=== PATIENT | female | born 1995 | race African-American/Black ===

== ENCOUNTER 2016-05-30 10:23 | Inpatient (IN) | payer MEDICAID ==
--- NOTE | 2016-05-30 10:34 | Non Stress Test Report ---
Non Stress Test Datetime Report Generated by CPN: 05/30/2016 10:33 DEMOGRAPHIC EGA NST: 34.2 INDICATION Indication for Study: Ordered by Provider MONITORING Monitor Explained: Monitor Explained; Test Explained; Patient Verbalized Understanding Time on Monitor: 05/05/2016 12:22 Time off Monitor: 05/05/2016 16:13 NST Duration: 231 NST INTERVENTIONS NST Interventions: Reposition Patient Physician Notified NST: Dr. Neilsen BABY A: [id number] BABY A Movement : Present Contraction Frequency : rare FHR Baseline : 160 Accelerations : 15X15 Decelerations : None Variability : Moderate 6-25bpm NST Review: Meets Criteria for Reactive NST NST Review and Verified By : Michael Thompson RN NST Results: Reactive NST REPORT Report Trigger: Send Report
[2016-05-30] MEDS ORDERED: RINGERS SOLUTION,LACTATED 1,000 ML IV PRN (10:48)
[2016-05-30] MEDS ORDERED: RINGERS SOLUTION,LACTATED 1,000 ML IV ONE (10:48)
[2016-05-30] MEDS ORDERED: PENICILLIN G POTASSIUM 5,000,000 UNIT in DEXTROSE 5%-WATER 100 ML IV ONE (10:48)
[2016-05-30] MEDS ORDERED: PENICILLIN G-K 5 MILLION UNIT VIAL ONE (10:58)
[2016-05-30] MEDS ORDERED: LIDOCAINE 1% INJ-PF (10 MG/ML) 30 ML SDV ONE (11:08)
[2016-05-30] MEDS ORDERED: MISOPROSTOL 0.2 MG TABLET ONE (11:08)
[2016-05-30] MEDS ORDERED: OXYTOCIN/NORMAL SALINE 20 UNIT/1,000 ML RTUINJ ONE (11:08)
[2016-05-30 11:27] LABS: APPEARANCE,URINE SLIGHTLY-CLOUDY; BILIRUBIN,URINE NEGATIVE (NEGATIVE); GLUCOSE, URINE NEGATIVE (NEGATIVE); KETONES,URINE TRACE mg/dL (NEGATIVE); LEUKOCYTE ESTERASE,URINE SMALL (NEGATIVE); NITRITE,URINE NEGATIVE (NEGATIVE); PROTEIN,URINE 30 mg/dL (NEGATIVE); UROBILINOGEN,URINE NEGATIVE mg/dL (<2.0)
[2016-05-30] MEDS ORDERED: IBUPROFEN 800 MG TABLET ONE ×2 (11:30→14:05)
[2016-05-30 11:35] LABS: HEMATOCRIT 32.9 % (36.0-47.0); HEMOGLOBIN 10.6 g/dL (12.0-15.5); HGB HCT DIFFERENCE -1.1; MEAN CORPUSCULAR HEMOGLOBIN 28.7 pg (27.0-33.4); MEAN CORPUSCULAR HGB CONC 32.2 g/dL (32.0-36.0); MEAN CORPUSCULAR VOLUME 89 fl (80-97); WHITE BLOOD COUNT 21.1 10^3/uL (4.0-10.5)
[2016-05-30 11:52] LABS: BAND NEUTROPHILS % (MANUAL) 2 % (3-5); BASOPHILS % (MANUAL) 0 % (0-2); EOSINOPHILS % (MANUAL) 0 % (0-6); LYMPHOCYTES % (MANUAL) 4 % (13-45); TOTAL CELLS COUNTED 100
[2016-05-30 11:53] LABS: RBC MORPHOLOGY COMMENT NORMO-CYTIC/CHROMIC
--- NOTE | 2016-05-30 12:00 | L&D Flow Sheet ---
LD Flowsheet Datetime Report Generated by CPN: 05/30/2016 12:00 Datetime: 05/30/2016 11:40 NBP Sys/Jenifer/Mean (mmHg): 166 (QS system process) : 85 (QS system process) : 117 (QS system process) Pulse: 90 (QS system process) LaborFlag: Labor (QS system process) Datetime: 05/30/2016 11:24 NBP Sys/Jenifer/Mean (mmHg): 196 (QS system process) : 153 (QS system process) : 168 (QS system process) Pulse: 127 (QS system process) LaborFlag: Labor (QS system process) Datetime: 05/30/2016 11:16 Communication Comments: Nursery at bedside for delivery. (Mart Martina, RN) Datetime: 05/30/2016 11:05 Vital Signs Stage of : Labor (Deidre Marlatt, RN) Vaginal Exam Dilatation (cm): 10.0 (Deidre Thompson RN) Effacement (%): 100 (Deidre Thompson RN) Station: 2 (Deidre Thompson RN) Exam by: Adan LAMBERT CNM (Deidre Thompson RN) Membrane Status: Ruptured (Deidre Thompson RN) Medications Antibiotics: Penicillin IV (Units) @ 5 million units (Deidre Thompson RN) Patient Care IV/Blood Work: IV Started; IV Bolus Started (Deidre Thompson RN) Procedures: Sterile Vag Exam (Deidre Marlatt, RN) Communication Communication: RN at Bedside; Provider at Bedside (Deidre Yanejr, RN) Datetime: 05/30/2016 11:03 Patient Care IV/Blood Work: Labs Drawn (Deidremika Thompson, RN) Datetime: 05/30/2016 11:02 Stage 2 Pushing: Urge to Push (Deidre Marlatt, RN) Provider Notified (Name): A. Emmel CNM (Deidre Marlatt, RN) Communication Comments: Notified provider of patient grunting with contractions (Deidre Marlatt, RN) Datetime: 05/30/2016 10:47 Communication Comments: order received for fern testing, during exam, RN noted pooling, patient is grossly ruptured (Olive Adithya, RN) Datetime: 05/30/2016 10:37 NBP Sys/Jenifer/Mean (mmHg): 150 (QS system process) : 98 (QS system process) : 112 (QS system process) Pulse: 123 (QS system process) LaborFlag: OB Triage (QS system process)
[2016-05-30 12:20] LABS: URINE BARBITURATES SCREEN NEGATIVE; URINE METHADONE SCREEN NEGATIVE; URINE PHENCYCLIDINE SCREEN NEGATIVE
[2016-05-30 12:44] LABS: ALANINE AMINOTRANSFERASE 26 U/L (9-52); ALBUMIN 3.8 g/dL (3.5-5.0); ALKALINE PHOSPHATASE 269 U/L (38-126); ANION GAP 14 (5-19); ASPARTATE AMINO TRANSFERASE 32 U/L (14-36); BILIRUBIN,TOTAL 0.5 mg/dL (0.2-1.3); BLOOD UREA NITROGEN 5 mg/dL (7-20); CARBON DIOXIDE 20 mmol/L (22-30); CHLORIDE 105 mmol/L (98-107); CREATININE RESULT 0.48 mg/dL (0.52-1.25); GLUCOSE 92 mg/dL (75-110); LDH 508 U/L (313-618); SODIUM 139.3 mmol/L (137-145); TOTAL PROTEIN 6.7 g/dL (6.3-8.2); URIC ACID 5.6 mg/dL (2.5-6.2)
[2016-05-30 12:46] LABS: POTASSIUM 3.7 mmol/L (3.6-5.0)
--- NOTE | 2016-05-30 13:26 | Delivery Summary ---
Del Sum A-C Datetime Report Generated by CPN: 05/30/2016 13:26 ADMISSION DATA Chief Complaint: Uterine Contractions; Suspected Ruptured Membranes Admission Impression: Term, Intrauterine Admit Provider Comments: 28 yo presents with suspected rupture of membranes poor care pt appears to be high on drugs denies drug use after questioning reports +THC last night abdomen nontender FHTs average variability 120s no decelerations GBS positive pt with urge to push bed prepared for delivery DELIVERY PERSONNEL Delivery Doctor:: Sonia Roman, CNM Labor and Delivery Nurse:: Deidre Thompson RNforging dies final finisher Nurse:: Clara Best RN Nursery Nurse:: Ruthie Elizabeth RN Messaging Architect/CUSTOMS INSPECTOR: [facility] Additional Personnel: : Lani Young RN MATERNAL INFORMATION Delivery Anesthesia: None Medications After Delivery: Pitocin Bolus-Please Comment; Pitocin Drip 20 Units/1000ml NSS Estimated Blood Loss (ml): 350 Maternal Complications: Precipitous Labor (<3hrs); Other Other Maternal Complications: THC USE Provider Comments: pt screaming in bed nursery nurse at bedside bed prepared pt's mother at bedside bulb suctioned on perineum TRINA to abdomen tactile stimulation elicits spont cry cord clamped and cut by FOB GBS positive- prophylaxis x 1 completed at time of pushing cord blood obtained thin cord placenta to pathology EBL 350 cc superficial labial lacerations not repaired uterus explored hemostasis achieved LABOR SUMMARY EDC: 06/14/2016 00:00 No. Babies in Womb: 1 Attempted: No Labor Anesthesia: None LABOR INFORMATION Reason for Induction: Not Applicable Onset of Labor: 05/30/2016 03:00 Complete Dilatation: 05/30/2016 11:05 Oxytocin: N/A Group B Beta Strep: 1 GROUP B BETA HEMOLYTIC STREPTOCOCCUS RECOVERED Antibiotics # of Doses: I Antibiotics Time of Last Dose: 1101 Name of Antibiotic Given: PENICILLIN G Steroids Given: None Reason Steroids Not Administered: Not Applicable MEMBRANES Membranes Rupture Method: Spontaneous Rupture of Membranes: 05/30/2016 05:30 Length of Rupture (hr): 5.78 Amniotic Fluid Color: Clear Amniotic Fluid Amount: Moderate Amniotic Fluid Odor: Normal STAGES OF LABOR Stage 1 hr: 8 Stage 1 min: 5 Stage 2 hr: 0 Stage 2 min: 12 Stage 3 hr: 0 Stage 3 min: 5 Total Time in Labor hr: 8 Total Time in Labor min: 22 VAGINAL DELIVERY Episiotomy: None Laceration Type: None Sponge Count Correct: N/A Sharps Count Correct: N/A BABY A INFORMATION Delivery Date/Time: 05/30/2016 11:17 Method of Delivery: Vaginal Born in Route : No : N/A Forceps: N/A Vacuum Extraction: N/A Shoulder Dystocia : No PRESENTATION/POSITION BABY A Presentation: Cephalic Cephalic Presentation: Vertex Vertex Position: Right Occipital Anterior Breech Presentation: N/A PLACENTA INFORMATION BABY A Placenta Delivery Time : 05/30/2016 11:22 Placenta Method of Delivery: Spontaneous Placenta Status: Delivered SCORES BABY A Heart Rate 1 min: >100 bpm Resp Effort 1 min: Good Cry Reflex Irritability 1 min: Cough or Sneeze or Pulls Away Muscle Tone 1 min: Active Motion Color 1 min: Blue/Pale Resuscitation Effort 1 min: Tactile Stimulation SCORE 1 MIN: 8 Heart Rate 5 min: >100 bpm Resp Effort 5 min: Good Cry Reflex Irritability 5 min: Cough or Sneeze or Pulls Away Muscle Tone 5 min: Active Motion Color 5 min: Body [place], Extremities Blue Resuscitation Effort 5 min: Tactile Stimulation SCORE 5 MIN: 9 INFANT INFORMATION BABY A Gestational Age at Delivery: 37.6 Gestational Status: Early Term- 37- 38.6 Weeks Outcome : Liveborn Infant Condition : Stable Sex: Female IDENTIFICATION BABY A Verification Date/Time: 05/30/2016 11:31 ID Band Number: [id number] Mother's Name Verified: Yes RN Verifying Infant: Enedelia HajiEUSEBIO, Michael Thompson RN WEIGHT/LENGTH BABY A Infant Birthweight (gm): 2480 Weight (lb): 5 Infant Weight (oz): 7 Infant Length (in): 18.50 Length (cm): 46.99 CORD INFORMATION BABY A No. Cord Vessels: 3 Nuchal Cord : N/A Nuchal Cord- Other: FOOT CORD Cord Blood Taken: Yes-For Eval (Mom's Blood Type - or O+) Suction: None ASSESSMENT BABY A Infant Complications: None Physical Findings at Delivery: Caput Succedaneum; [place] Spots Respirations: Appears Normal Skin to Skin: Yes Skin to Skin Time (min): 5 Steward/Stewardess Third Class/ALS Called : No Care By: R MAXIMINO, RN BABY B INFORMATION : N/A SIGNATURES Assignment: Herve Adair DO Signature: with User ID: [email or web address] : with User ID: [email or web address]
--- NOTE | 2016-05-30 13:39 | Admission Physical ---
Datetime Report Generated by CPN: 05/30/2016 13:38 CURRENT ADMISSION Chief Complaint: Uterine Contractions; Suspected Ruptured Membranes Admit Plan: Admit to Unit Admit Plan- Other: precipituous delivery ALLERGIES Medication Allergies: No Medication Allergies: No Known Allergies (05/30/2016) Latex: No Latex Allergies Food Allergies: denies Environmental Allergies: denies OBSTETRICAL HISTORY EDC: 06/14/2016 00:00 : 1 Para: 0 Gestational Diabetes: No Rh Sensitization: No Incompetent Cervix: No RANJIT: No Infertility: No ART Treatment: No Uterine Anomaly: No IUGR: No Hx Previous C/S: No Macrosomia: No Hx Loss/Stillborn: No PIH: No Hx : No Placenta Previa/Abruption: No Depression/PP Depression: No PTL/PROM: No Post Hemorrhage: No Current Procedures: Ultrasound Obstetrical History Comments: G1: current SEE RECORDS Alcohol: No Marijuana : Yes Last Used: 05/29/2016 00:00 Cocaine: No Other Illicit Drugs: No Cigarettes: Never Smoker. [id number] MEDICAL HISTORY Diabetes: No Blood Transfusion: No Pulmonary Disease (Asthma, TB): No Breast Disease: No Hypertension: No Meat Puller Surgery: No Heart Disease: No Hosp/Surgery: No Autoimmune Disorder: No Anesthetic Complications: No Kidney Disease: No Abnormal Pap Smear: No Neuro/Epilepsy: No Psychiatric Disorders: No Other Medical Diseases: No Hepatitis/Liver Disease: No Significant Family History: No Varicosities/Phlebitis: No Trauma/Violence : No Thyroid Dysfunction: No INFECTIOUS HISTORY Gonorrhea: No Genital Herpes: No Chlamydia: No Tuberculosis: No Syphilis: No Hepatitis: No HIV/AIDS Exposure: No Rash or Viral Illness: No HPV: No PHYSICAL EXAM General: Normal HEENT: Normal Neurologic: Normal Thyroid: Normal Heart: Normal Lungs: Normal Breast: Normal Back: Normal Abdomen: Normal Genitourinary Exam: Normal Extremities: Normal DTRs: Normal Pelvic Type: Adequate Vital Signs: Reviewed VAGINAL EXAM Dilatation: 10 Effacement: 100 Station: 2 MEMBRANES Membranes: Ruptured Amniotic Fluid Color: Clear FETUS A EGA: 37.6 Monitoring: External US Decelerations: None FHR Category: Category I Presentation: Vertex Admit Comment: 28 yo presents with suspected rupture of membranes poor care pt appears to be high on drugs denies drug use after questioning reports +THC last night abdomen nontender FHTs average variability 120s no decelerations GBS positive pt with urge to push bed prepared for delivery PLANS FOR LABOR AND DELIVERY Labor and Delivery: None Pain Management: None Feeding Preference: Formula Benefit of Breast Feed Discussed: Yes Circumcision: N/A INFORMED CONSENT Informed Consent Obtained: Vaginal Delivery; Risks, Benefits and Alternatives Discussed Assignment: DO Livan Irene: with User ID: [email or web address] : with User ID: [email or web address]
[2016-05-30] MEDS ORDERED: DIBUCAINE 1% OINTMENT 28 GM TP PRN (13:47)
[2016-05-30] MEDS ORDERED: BENZOCAINE/MENTHOL AEROSOL SPRAY 56 ML TOP PRN (13:47)
[2016-05-30] MEDS ORDERED: DIPH/PERTUSS(ACELL)/TETANUS VAC/PF 0.5 ML SYR (>=10YO) IM PRN (13:47)
[2016-05-30] MEDS ORDERED: ZOLPIDEM TARTRATE 5 MG TABLET PO PRN (13:47)
[2016-05-30] MEDS ORDERED: MEASLES,MUMPS&RUBELLA VACC/PF 0.5 ML VIAL SUBCUT PRN (13:47)
--- NOTE | 2016-05-30 16:01 | L&D Flow Sheet ---
LD Flowsheet Datetime Report Generated by CPN: 05/30/2016 16:00 Datetime: 05/30/2016 13:30 Pain Scale: 1 (Deidre Thompson RN) Pain Presence: Constant (Deidre Thompson RN) Pain Type: Ache (Deidre Thompson RN) Pain Location: Perineum (Deidre Thompson RN) Pain Goal: 1 (Deidre Thompson RN) Pain Relief Measures: Comfort Measures (Deidre Thompson RN) LaborFlag: Labor (QS system process) Datetime: 05/30/2016 13:22 NBP Sys/Jenifer/Mean (mmHg): 139 (QS system process) : 68 (QS system process) : 96 (QS system process) Pulse: 95 (QS system process) LaborFlag: Labor (QS system process) Datetime: 05/30/2016 13:11 NBP Sys/Jenifer/Mean (mmHg): 148 (QS system process) : 80 (QS system process) : 108 (QS system process) Pulse: 91 (QS system process) LaborFlag: Labor (QS system process) Datetime: 05/30/2016 13:01 NBP Sys/Jenifer/Mean (mmHg): 152 (QS system process) : 91 (QS system process) : 110 (QS system process) Pulse: 82 (QS system process) LaborFlag: Labor (QS system process) Datetime: 05/30/2016 13:00 Pain Scale: 1 (Deidre Thompson RN) Pain Presence: Intermittent (Deidre Thompson RN) Pain Type: Cramping; Ache (Deidre Thompson RN) Pain Location: Abdomen; Perineum (Deidre Thompson RN) LaborFlag: Labor (QS system process) Datetime: 05/30/2016 12:52 NBP Sys/Jenifer/Mean (mmHg): 161 (QS system process) : 77 (QS system process) : 110 (QS system process) Pulse: 81 (QS system process) LaborFlag: Labor (QS system process) Datetime: 05/30/2016 12:42 NBP Sys/Jenifer/Mean (mmHg): 158 (QS system process) : 77 (QS system process) : 110 (QS system process) Pulse: 76 (QS system process) LaborFlag: Labor (QS system process) Datetime: 05/30/2016 12:32 NBP Sys/Jenifer/Mean (mmHg): 186 (QS system process) : 88 (QS system process) : 126 (QS system process) Pulse: 85 (QS system process) LaborFlag: Labor (QS system process) Datetime: 05/30/2016 12:30 Pain Scale: 1 (Deidre Thompson RN) Pain Presence: Intermittent (Deidre Thompson RN) Pain Type: Cramping; Ache (Deidre Thompson RN) Pain Location: Abdomen; Perineum (Deidre Thompson RN) LaborFlag: Labor (QS system process) Datetime: 05/30/2016 12:21 NBP Sys/Jenifer/Mean (mmHg): 162 (QS system process) : 82 (QS system process) : 117 (QS system process) Pulse: 90 (QS system process) LaborFlag: Labor (QS system process) Datetime: 05/30/2016 12:18 Communication: Provider Orders Received; Call/Page Placed to Provider (Deidre Thompson RN) Provider Notified (Name): AdanGordy Abel CNM (Deidre Thompson RN) Notification Reason: Status Update; Maternal Vital Sign Change (Deidre Thompson RN) Communication Comments: notified provider of patient's BPs, received order to obtain CMP, LDH, and uric acid labs (Deidre Thompson RN) Datetime: 05/30/2016 12:15 NBP Sys/Jenifer/Mean (mmHg): 173 (QS system process) : 93 (QS system process) : 125 (QS system process) Pulse: 84 (QS system process) Pain Scale: 2 (Deidre Thompson RN) Pain Presence: Intermittent (Deidre Thompson RN) Pain Type: Cramping; Ache (Deidre Thompson RN) Pain Location: Abdomen; Perineum (Deidre Thompson RN) LaborFlag: Labor (QS system process) Datetime: 05/30/2016 12:09 NBP Sys/Jenifer/Mean (mmHg): 190 (QS system process) : 107 (QS system process) : 139 (QS system process) Pulse: 84 (QS system process) LaborFlag: Labor (QS system process) Datetime: 05/30/2016 12:08 NBP Sys/Jenifer/Mean (mmHg): 138 (QS system process) : 90 (QS system process) : 109 (QS system process) Pulse: 87 (QS system process) LaborFlag: Labor (QS system process) Datetime: 05/30/2016 12:00 Pain Scale: 2 (Deidre Thompson RN) Pain Presence: Intermittent (Deidre Thompson RN) Pain Type: Cramping; Ache (Deidre Thompson RN) Pain Location: Abdomen; Perineum (Deidre Thompson RN) LaborFlag: Labor (QS system process)
--- NOTE | 2016-05-30 16:27 | Admission Physical ---
Datetime Report Generated by CPN: 05/30/2016 16:27 CURRENT ADMISSION Chief Complaint: Uterine Contractions; Suspected Ruptured Membranes Admit Plan: Admit to Unit Admit Plan- Other: precipituous delivery ALLERGIES Medication Allergies: No Medication Allergies: No Known Allergies (05/30/2016) Latex: No Latex Allergies Food Allergies: denies Environmental Allergies: denies OBSTETRICAL HISTORY EDC: 06/14/2016 00:00 : 1 Para: 0 Gestational Diabetes: No Rh Sensitization: No Incompetent Cervix: No RANJIT: No Infertility: No ART Treatment: No Uterine Anomaly: No IUGR: No Hx Previous C/S: No Macrosomia: No Hx Loss/Stillborn: No PIH: No Hx : No Placenta Previa/Abruption: No Depression/PP Depression: No PTL/PROM: No Post Hemorrhage: No Current Procedures: Ultrasound Obstetrical History Comments: G1: current SEE RECORDS Alcohol: No Marijuana : Yes Last Used: 05/29/2016 00:00 Cocaine: No Other Illicit Drugs: No Cigarettes: Never Smoker. [id number] MEDICAL HISTORY Diabetes: No Blood Transfusion: No Pulmonary Disease (Asthma, TB): No Breast Disease: No Hypertension: No Cocktail Lounge Manager Surgery: No Heart Disease: No Hosp/Surgery: No Autoimmune Disorder: No Anesthetic Complications: No Kidney Disease: No Abnormal Pap Smear: No Neuro/Epilepsy: No Psychiatric Disorders: No Other Medical Diseases: No Hepatitis/Liver Disease: No Significant Family History: No Varicosities/Phlebitis: No Trauma/Violence : No Thyroid Dysfunction: No INFECTIOUS HISTORY Gonorrhea: No Genital Herpes: No Chlamydia: No Tuberculosis: No Syphilis: No Hepatitis: No HIV/AIDS Exposure: No Rash or Viral Illness: No HPV: No PHYSICAL EXAM General: Normal HEENT: Normal Neurologic: Normal Thyroid: Normal Heart: Normal Lungs: Normal Breast: Normal Back: Normal Abdomen: Normal Genitourinary Exam: Normal Extremities: Normal DTRs: Normal Pelvic Type: Adequate Vital Signs: Reviewed VAGINAL EXAM Dilatation: 10 Effacement: 100 Station: 2 MEMBRANES Membranes: Ruptured Amniotic Fluid Color: Clear FETUS A EGA: 37.6 Monitoring: External US Decelerations: None FHR Category: Category I Presentation: Vertex Admit Comment: addendum pt with reactive rpr titer 1:8 in october poor care repeat rpr and TPA reviewed with pt. PLANS FOR LABOR AND DELIVERY Labor and Delivery: None Pain Management: None Feeding Preference: Formula Benefit of Breast Feed Discussed: Yes Circumcision: N/A INFORMED CONSENT Informed Consent Obtained: Vaginal Delivery; Risks, Benefits and Alternatives Discussed Assignment: DO Livan Irene: with User ID: [email or web address] : with User ID: [email or web address]
[2016-05-30] MEDS: PENICILLIN G POTASSIUM 2,500,000 UNIT in DEXTROSE 5%-WATER 50 ML IV SCH ×2 (16:48→19:34)
[2016-05-30] MEDS: DOCUSATE SODIUM 100 MG CAPSULE PO SCH (17:29)
[2016-05-30] MEDS: FERROUS SULFATE 325 MG TABLET PO SCH (17:29)
--- NOTE | 2016-05-30 19:02 | L&D Flow Sheet ---
LD Flowsheet Datetime Report Generated by CPN: 05/30/2016 19:00 Datetime: 05/30/2016 13:30 Pain Pain Scale: 1 (Deidre Thompson RN) Pain Presence: Constant (Deidre Thompson RN) Pain Type: Ache (KIMBERLY Louis Pain Location: Perineum (Deidre Thompson RN) Pain Goal: 1 (KIMBERLY Louis Pain Relief Measures: Comfort Measures (Deidre Marlatt, RN) LaborFlag: Labor (QS system process) Datetime: 05/30/2016 13:22 NBP Sys/Jenifer/Mean (mmHg): 139 (QS system process) : 68 (QS system process) : 96 (QS system process) Pulse: 95 (QS system process) LaborFlag: Labor (QS system process) Datetime: 05/30/2016 13:11 NBP Sys/Jenifer/Mean (mmHg): 148 (QS system process) : 80 (QS system process) : 108 (QS system process) Pulse: 91 (QS system process) LaborFlag: Labor (QS system process) Datetime: 05/30/2016 13:01 NBP Sys/Jenifer/Mean (mmHg): 152 (QS system process) : 91 (QS system process) : 110 (QS system process) Pulse: 82 (QS system process) LaborFlag: Labor (QS system process) Datetime: 05/30/2016 13:00 Pain Pain Scale: 1 (Deidre Thompson RN) Pain Presence: Intermittent (Deidre Thompson RN) Pain Type: Cramping; Ache (Deidre Thompson RN) Pain Location: Abdomen; Perineum (Deidre Thompson RN) LaborFlag: Labor (QS system process) Datetime: 05/30/2016 12:52 NBP Sys/Jenifer/Mean (mmHg): 161 (QS system process) : 77 (QS system process) : 110 (QS system process) Pulse: 81 (QS system process) LaborFlag: Labor (QS system process) Datetime: 05/30/2016 12:42 NBP Sys/Jenifer/Mean (mmHg): 158 (QS system process) : 77 (QS system process) : 110 (QS system process) Pulse: 76 (QS system process) LaborFlag: Labor (QS system process) Datetime: 05/30/2016 12:32 NBP Sys/Jenifer/Mean (mmHg): 186 (QS system process) : 88 (QS system process) : 126 (QS system process) Pulse: 85 (QS system process) LaborFlag: Labor (QS system process) Datetime: 05/30/2016 12:30 Pain Pain Scale: 1 (Deidre Thompson, EUSEBIO) Pain Presence: Intermittent (Deidre Thompson, EUSEBIO) Pain Type: Cramping; Ache (Deidre Thompson, EUSEBIO) Pain Location: Abdomen; Perineum (Deidre Thompson, EUSEBIO) LaborFlag: Labor (QS system process) Datetime: 05/30/2016 12:21 NBP Sys/Jenifer/Mean (mmHg): 162 (QS system process) : 82 (QS system process) : 117 (QS system process) Pulse: 90 (QS system process) LaborFlag: Labor (QS system process) Datetime: 05/30/2016 12:18 Communication Communication: Provider Orders Received; Call/Page Placed to Provider (Deidre Thompson RN) Provider Notified (Name): Elana Roman CNM (Deidre Thompson RN) Notification Reason: Status Update; Maternal Vital Sign Change (Deidre Thompson RN) Communication Comments: notified provider of patient's BPs, received order to obtain CMP, LDH, and uric acid labs (Deidre Thompson RN) Datetime: 05/30/2016 12:15 NBP Sys/Jenifer/Mean (mmHg): 173 (QS system process) : 93 (QS system process) : 125 (QS system process) Pulse: 84 (QS system process) Pain Pain Scale: 2 (Deidre Thompson RN) Pain Presence: Intermittent (Deidre Thompson RN) Pain Type: Cramping; Ache (Deidre Thompson RN) Pain Location: Abdomen; Perineum (Deidre Thompson RN) LaborFlag: Labor (QS system process) Datetime: 05/30/2016 12:09 NBP Sys/Jenifer/Mean (mmHg): 190 (QS system process) : 107 (QS system process) : 139 (QS system process) Pulse: 84 (QS system process) LaborFlag: Labor (QS system process) Datetime: 05/30/2016 12:08 NBP Sys/Jenifer/Mean (mmHg): 138 (QS system process) : 90 (QS system process) : 109 (QS system process) Pulse: 87 (QS system process) LaborFlag: Labor (QS system process) Datetime: 05/30/2016 12:00 Pain Pain Scale: 2 (Deidre Thompson RN) Pain Presence: Intermittent (Deidre Thompson RN) Pain Type: Cramping; Ache (Deidre Thompson RN) Pain Location: Abdomen; Perineum (Deidre Marlatt, RN) LaborFlag: Labor (QS system process) Datetime: 05/30/2016 11:45 Pain Pain Scale: 2 (Deidre Thompson, EUSEBIO) Pain Presence: Intermittent (Deidre Thompson, EUSEBIO) Pain Type: Cramping; Ache (Deidre Thompson, RN) Pain Location: Abdomen; Perineum (Deidre Thompson, EUSEBIO) LaborFlag: Labor (QS system process) Datetime: 05/30/2016 11:40 NBP Sys/Jenifer/Mean (mmHg): 166 (QS system process) : 85 (QS system process) : 117 (QS system process) Pulse: 90 (QS system process) LaborFlag: Labor (QS system process) Datetime: 05/30/2016 11:30 Pain Pain Scale: 2 (Deidre Thompson RN) Pain Presence: Intermittent (Deidre Thompson RN) Pain Type: Cramping; Ache (Deidre Thompson RN) Pain Location: Abdomen; Perineum (Deidre Thompson RN) LaborFlag: Labor (QS system process) Datetime: 05/30/2016 11:24 NBP Sys/Jenifer/Mean (mmHg): 196 (QS system process) : 153 (QS system process) : 168 (QS system process) Pulse: 127 (QS system process) Vital Sign Comments: patient very shakey, unable to keep arm still (Deidre Thompson, RN) LaborFlag: Labor (QS system process) Datetime: 05/30/2016 11:16 Communication Comments: Nursery at bedside for delivery. (Mart Brunofleet, RN) Datetime: 05/30/2016 11:10 Comments: RN at bedside continually monitoring FHTs while patient pushing with contractions (Deidre Cheoracioariel, RN) Stage 2 Pushing: Coached on Pushing (Deidre Chejr, RN) Pushing Position: Pushing with Contractions; Pushing Lithotomy (Deidre Marlatt, RN) Communication Communication: RN at Bedside; Provider at Bedside (Deidre Yanejr, RN) Datetime: 05/30/2016 11:05 Vital Signs Stage of : Labor (Deidre Marlatt, RN) Vaginal Exam Dilatation (cm): 10.0 (Deidre Marlatt, RN) Effacement (%): 100 (Deidre Marlatt, RN) Station: 2 (Deidre Marlatt, RN) Exam by: A EMMEL, CNM (Deidre Marlatt, RN) Membrane Status: Ruptured (Deidre Marlatt, RN) Medications Antibiotics: Penicillin IV (Units) @ 5 million units (Deidre Marlatt, RN) Patient Care IV/Blood Work: IV Started; IV Bolus Started (Deidremika Stanfordtt, RN) Procedures: Sterile Vag Exam (Deidre Yaneoraciott, RN) Communication Communication: RN at Bedside; Provider at Bedside (Deidre Marlatt, RN) Datetime: 05/30/2016 11:03 Patient Care IV/Blood Work: Labs Drawn (Deidre Marlatt, RN) Datetime: 05/30/2016 11:02 Stage 2 Pushing: Urge to Push (Deidre Thompson, RN) Provider Notified (Name): A. Emmel CNM (Deidre Thompson, RN) Communication Comments: Notified provider of patient grunting with contractions (Deidre Thompson, RN) Datetime: 05/30/2016 11:00 Uterine Activity Frequency (min): 3-4 (Deidre Marlatt, RN) Uterine Activity Frequency (min): unknown (Deidre Marlatt, RN) Quality: Moderate (Deidre Marlatt, RN) Duration (sec): 70-120 (Deidre Marlatt, RN) Resting Tone (Palpate): Relaxed (Deidre Marlatt, RN) Assessment A Monitor Mode: External US (Deidre Marlatt, RN) FHR Baseline Rate : 135 (Deidre Marlatt, RN) Variability: Moderate 6-25 bpm (Deidre Stanfordtt, RN) Pain Pain Scale: 5 (Deidre Thompson, RN) Pain Presence: Intermittent (Deidre Thompson, RN) Pain Type: Contraction (Deidre Stanfordtt, RN) Pain Location: Abdomen (Deidre Thompson, RN) Pain Goal: 1 (Deidre Thompson, RN) Pain Coping: Breathing Through Contractions (Deidre Thompson, RN) Vaginal Bleeding: Normal Show (Deidre Thompson, RN) Maternal Assessment Level of Consciousness: Fully Conscious (Deidre Thompson, RN) DTR's/Clonus: DTRs 2+; No Clonus (Deidre Thompson, RN) Headache: Denies (Deidre Thompson, RN) Breath Sounds, Left: Clear and Equal (Deidre Thompson, RN) Breath Sounds, Right: Clear and Equal (Deidre Thompson, RN) Nausea/Vomiting: Denies (Deidre Thompson RN) RUQ Epigastric Pain: Denies (Deidre Thompson RN) Teaching Instructional Method: Demo; Verbal; Patient Instructed; Family/Support Person Instructed; Verbalized Understanding (Deidre Thompson RN) Plan of Care: Plan of Care Discussed; Vaginal Delivery; Labor (Deidre Thompson RN) Unit Routine: [place] to Room; Call Roy; Monitoring (Deidre Thompson RN) Medications: Antibiotics (Deidre Thompson RN) LaborFlag: OB Triage (QS system process) Datetime: 05/30/2016 10:47 Communication Comments: order received for fern testing, during exam, RN noted pooling, patient is grossly ruptured (Olive Haji, EUSEBIO) Datetime: 05/30/2016 10:37 NBP Sys/Jenifer/Mean (mmHg): 150 (QS system process) : 98 (QS system process) : 112 (QS system process) Pulse: 123 (QS system process) LaborFlag: OB Triage (QS system process)
[2016-05-30] MEDS: IBUPROFEN 800 MG TABLET PO SCH (22:46)
[2016-05-31] MEDS: IBUPROFEN 800 MG TABLET PO SCH ×3 (06:02→21:44)
--- NOTE | 2016-05-31 06:27 | L&D General Admission ---
General Admit Datetime Report Generated by CPN: 05/31/2016 06:00 INFORMATION Patient Age: 20 (05/05/2016 12:09:QS system process) EDC: 06/14/2016 00:00 (05/05/2016 12:33:Olive Haji RN) : 1 (05/05/2016 12:33:Deidre Thompson RN) Para: 0 (05/05/2016 16:15:Olive Haji RN) Baby, Number in Womb: 1 (05/05/2016 16:15:Olive Haji RN) CARE Primary Dry Paste Supervisor: [facility] (05/05/2016 12:33:Olive Haji RN) Month of 1st Visit: September (05/05/2016 12:33:Olive Haji RN) Height (in): 64 (05/30/2016 15:27:QS system process) ALLERGIES Medication Allergy: No (05/05/2016 12:33:Olive Haji RN) Medication Allergies: No Known Allergies (05/30/2016) (05/30/2016 12:12:QS system process) Latex Allergy: No Latex Allergies (05/05/2016 12:33:Olive Haji RN) Food Allergies: denies (05/05/2016 12:33:Olive Haji RN) Environmental Allergies: denies (05/05/2016 12:33:Olive Haji RN) COMMUNICATION Primary Language: Maltese (05/05/2016 12:33:Olive Haji RN) Medical Tx Preferred Language: Maltese (05/05/2016 12:33:Olive Haji RN) DEMOGRAPHICS Address: [address] [place] [address] [address], [address] [place] [address] (05/05/2016 12:09:QS system process) Zipcode: [phone] (05/05/2016 12:09:QS system process) Home (05/05/2016 12:09:QS system process) SSN: [id number] (05/05/2016 12:09:QS system process) Next of Kin Name: MARY SCHWARTZ (05/05/2016 12:09:QS system process) Next of Kin (05/05/2016 12:09:QS system process) Next of Kin Relationship: MO (05/05/2016 12:09:QS system process) Date of : 1995 (05/05/2016 12:09:QS system process) Marital Status: Single (05/05/2016 12:09:QS system process) Sex: Female (05/05/2016 12:09:QS system process) Race: (05/05/2016 12:09:QS system process) Ethnicity: Non- or (05/05/2016 12:09:QS system process) Anabaptist: None (05/05/2016 12:09:QS system process) DRUG AND ALCOHOL USE Alcohol: No (05/05/2016 12:33:Olive Haji RN) Cigarettes: Never Smoker. [id number] (05/05/2016 12:33:Olive Haji RN) Marijuana: Yes (05/05/2016 12:33:Deidre Thompson RN) Marijuana Date Last Used: 05/29/2016 00:00 (05/05/2016 12:33:Deidre Thompson RN) Cocaine: No (05/05/2016 12:33:Olive Haji RN) Other Illicit Drugs: No (05/05/2016 12:33:Olive Haji RN) VACCINE HISTORY Influenza Vaccine: No (05/05/2016 12:33:Olive Haji RN) Pneumococcal Vaccine: No (05/05/2016 12:33:Olive Haji RN) Hand Striper: [facility] (05/05/2016 12:33:Deidre Thompson RN) Feeding Preference: Formula (05/05/2016 12:33:Olive Haji RN) Benefit of Breast Feed Discussed: Yes (05/05/2016 12:33:Olive Haji RN) Circumcision: N/A (05/05/2016 12:33:Deidre Thompson RN) Classes Attended: No (05/05/2016 12:33:Olive Haji RN) Tubal Ligation: No (05/05/2016 12:33:Olive Haji RN) Tubal Authorization Signed: N/A (05/05/2016 12:33:Olive Haji RN) Consent: N/A (05/05/2016 12:33:Olive Haji RN) Consent Signed: N/A (05/05/2016 12:33:Olive Haji RN) Pain Management Plans: None (05/05/2016 12:33:Deidre Thompson RN) Plans for Labor and Delivery: None (05/05/2016 12:33:Olive Haji RN) Support Person: Mary Bolaños (05/05/2016 12:33:Olive Haji RN) Support Person Relationship: Mother (05/05/2016 12:33:Olive Haji RN) Cultural/Spritual Practice: No (05/05/2016 12:33:Olive Haji RN) Spir/Cult Dietary Needs: No (05/05/2016 12:33:Olive Haji RN) LIVING SITUATION/DISCHARGE PLAN Living Arrangements: Apartment (05/05/2016 12:33:Olive Adithya, RN) Adequate Access to:: Electric; Heat; Refrigeration; Plumbing/Running water; Phone; Transportation (05/05/2016 12:33:Olive Haji RN) WIC Program: Needs referral (05/05/2016 12:33:Olive Haji RN) Discharge Carpenter Form Person: Mary Bolaños (05/05/2016 12:33:Olive Haji RN) Person to Help after Discharge: Mary Bolaños (05/05/2016 12:33:Olive Haji RN) Currently Using Commun Resources: No (05/05/2016 12:33:Olive Haji RN) Car Seat for Discharge: Yes (05/05/2016 12:33:Olive Haji RN) Adoption Requested: No (05/05/2016 12:33:Olive Haji RN) Pt Contact w/infant Post : N/A (05/05/2016 12:33:Olive Haji RN) LABS Blood Type: B Positive (05/05/2016 12:33:Olive Haji RN) Hemoglobin: 10.6 L (05/30/2016 11:05:QS system process) Hematocrit: 32.9 L (05/30/2016 11:05:QS system process) MCV: 89 (05/30/2016 11:05:QS system process) Group Beta Strep: 1 GROUP B BETA HEMOLYTIC STREPTOCOCCUS RECOVERED (05/05/2016 12:45:QS system process) OB/PREVIOUS HISTORY Current Procedures: Ultrasound (05/05/2016 12:33:Olive Haji RN) History of Previous : No (05/05/2016 12:33:Olive Haji RN) History of Gestational Diabetes: No (05/05/2016 12:33:Olive Haji RN) History of PIH: No (05/05/2016 12:33:Olive Haji RN) History of Incompetent Cervix: No (05/05/2016 12:33:Olive Haji RN) History of Placenta Previa/Abrup: No (05/05/2016 12:33:Olive Haji RN) History of Macrosomia: No (05/05/2016 12:33:Olive Haji RN) History of IUGR: No (05/05/2016 12:33:Olive Haji RN) History of Hemorrhage: No (05/05/2016 12:33:Olive Haji RN) History of Loss/Stillborn: No (05/05/2016 12:33:Olive Haji RN) History of : No (05/05/2016 12:33:Olive Haji RN) History of D (Rh) Sensitization: No (05/05/2016 12:33:Olive Haji RN) History Recurrent Loss/Stillborn: No (05/05/2016 12:33:Olive Haji RN) History Depression/PP Depression: No (05/05/2016 12:33:Olive Haji RN) History of Uterine Anomaly/RANJIT: No (05/05/2016 12:33:Olive Haji RN) History of Infertility: No (05/05/2016 12:33:Olive Haji RN) History of ART Treatment: No (05/05/2016 12:33:Olive Haji RN) History of RANJIT: No (05/05/2016 12:33:Olive Haji RN) Comments Obstetrical History: G1: current (05/05/2016 12:33:Olive Haji RN) MEDICAL HISTORY Med Hx Diabetes: No (05/05/2016 12:33:Olive Haji RN) Med Hx Hypertension: No (05/05/2016 12:33:Olive Haji RN) Med Hx Heart Disease: No (05/05/2016 12:33:Olive Haji RN) Med Hx Autoimmune Disorder: No (05/05/2016 12:33:Olive Haji RN) Med Hx Kidney Disease/UTI: No (05/05/2016 12:33:Olive Haji RN) Med Hx Neurologic/Epilepsy: No (05/05/2016 12:33:Olive Haji RN) Med Hx Psychiatric Disorders: No (05/05/2016 12:33:Olive Haji RN) Med Hx Hepatitis/Liver Disease: No (05/05/2016 12:33:Olive Haji RN) Med Hx Varicosities/Phlebitis: No (05/05/2016 12:33:Olive Haji RN) Med Hx Thyroid Dysfunction: No (05/05/2016 12:33:Olive Haji RN) Med Hx Trauma/Violence: No (05/05/2016 12:33:Olive Haji RN) Med Hx Blood Transfusion: No (05/05/2016 12:33:Olive Haji RN) Med Hx Pulmonary (Asthma,TB): No (05/05/2016 12:33:Olive Haji RN) Med Hx Breast: No (05/05/2016 12:33:Olive Haji RN) Med Hx MISSION PLANNER Surgery: No (05/05/2016 12:33:Olive Haji RN) Med Hx Hospitalization/Surgery: No (05/05/2016 12:33:Olive Haji RN) Med Hx Anesthetic Complications: No (05/05/2016 12:33:Olive Haji RN) Med Hx Abnormal Pap Smear: No (05/05/2016 12:33:Olive Haji RN) Other Medical Diseases: No (05/05/2016 12:33:Olive Haji RN) Med Hx Significant Family Hx: No (05/05/2016 12:33:Olive Haji RN) INFECTIOUS HISTORY Inf Hx Gonorrhea: No (05/05/2016 12:33:Olive Haji RN) Inf Hx Chlamydia: No (05/05/2016 12:33:Olive Haji RN) Inf Hx Syphilis: No (05/05/2016 12:33:Olive Haji RN) Inf Hx HIV/AIDS: No (05/05/2016 12:33:Olive Haji RN) Inf Hx Human Papilloma Virus: No (05/05/2016 12:33:Olive Haji RN) Inf Hx Pt/Partner Genital Herpes: No (05/05/2016 12:33:Olive Haji RN) Inf Hx Tuberculosis/Exposure: No (05/05/2016 12:33:Olive Haji RN) Inf Hx Hepatitis B,C: No (05/05/2016 12:33:Olive Haji RN) Inf Hx Rash or Viral Illness: No (05/05/2016 12:33:Olive Haji RN) GENETIC HISTORY Gen Hx Age >=35 at BO: No (05/05/2016 12:33:Olive Haji RN) Gen Hx Thalassemia: No (05/05/2016 12:33:Olive Haji RN) Gen Hx Congenital Heart Defect: No (05/05/2016 12:33:Olive Haji RN) Gen Hx Neural Tube Defect: No (05/05/2016 12:33:Olive Haji RN) Gen Hx Down's Syndrome: No (05/05/2016 12:33:Olive Haji RN) Gen Hx José-Sachs: No (05/05/2016 12:33:Olive Haji RN) Gen Hx Dory: No (05/05/2016 12:33:Olive Haji RN) Gen Hx Familial Dysautonomia: No (05/05/2016 12:33:Olive Haji RN) Gen Hx Sickle Cell Disease/Trait: No (05/05/2016 12:33:Olive Haji RN) Gen Hx Hemophilia/Blood Disorder: No (05/05/2016 12:33:Olive Haji RN) Gen Hx Muscular Dystrophy: No (05/05/2016 12:33:Olive Haji RN) Gen Hx Cystic Fibrosis: No (05/05/2016 12:33:Olive Haji RN) Gen Hx Huntingtons Chorea: No (05/05/2016 12:33:Olive Haji RN) Gen Hx Mental Retardation/Autism: No (05/05/2016 12:33:Olive Haji RN) Gen Hx Tested for Fragile X: No (05/05/2016 12:33:Olive Haji RN) Gen Hx Other Inher/Chromosomal: No (05/05/2016 12:33:Olive Haji RN) Gen Hx Maternal Metabolic DO: No (05/05/2016 12:33:Olive Haji RN) Gen Hx Pt Father or FOB Defect: No (05/05/2016 12:33:Olive Haji RN) Gen Hx Other Genetic History: No (05/05/2016 12:33:Olive Haji RN) Gen Hx Drugs/Meds since LMP: No (05/05/2016 12:33:Olive Haji RN)
--- NOTE | 2016-05-31 06:27 | L&D Current Admission ---
Current Admit Datetime Report Generated by CPN: 05/31/2016 06:00 ADMISSION INFORMATION Current Admit Date/Time: 05/30/2016 10:30 (05/05/2016 12:57:Deidre Thompson RN) Reason for Admission: Rupture of Membranes (05/05/2016 12:57:Deidre Thompson RN) Chief Complaint: Suspected Rupture of Membranes (05/30/2016 11:00:Deidre Thompson RN) EGA per Dates: 37.6 (05/05/2016 12:57:QS system process) Method of Arrival: Wheelchair (05/05/2016 12:57:Deidre Thompson RN) Admitted From: Home (05/05/2016 12:57:Deidre Thompson RN) Reason for Induction: Not Applicable (05/05/2016 12:57:Deidre Thompson RN) Records Available: Yes (05/05/2016 12:57:Deidre Thompson RN) General Admission Information: Reviewed (05/05/2016 12:57:Deidre Thompson RN) BELONGINGS/ADVANCED DIRECTIVES Valuables/Personal Effects: Purse/Wallet; Cell Phone (05/05/2016 12:57:Deidre Thompson RN) Advance Direct for Healthcare: No, and Wants No Information (05/05/2016 12:57:Deidre Thompson RN) Durable Power of Fast Food Attendant: No (05/05/2016 12:57:Deidre Thompson RN) Living Will: No (05/05/2016 12:57:Deidre Thompson RN) Organ Donor: No (05/05/2016 12:57:Deidre Thompson RN) Pt Rights Information Given: Yes (05/05/2016 12:57:Deidre Thompson RN) Pt Understands Pt Rights: Yes (05/05/2016 12:57:Deidre Thompson RN) LEARNING ASSESSMENT Knowledge Level: Understands L_D Process (05/05/2016 12:57:Deidre Thompson RN) Barriers to Learning: None (05/05/2016 12:57:Deidre Thompson RN) Learning Readiness: Motivated (05/05/2016 12:57:Deidre Thompson RN) Learning Needs: Labor and Delivery Process; Pain Management; Symptoms to Report; Treatment Plan; Medication; Diagnosis; Nutrition; Equipment; Infant Care; Community Resources; Other (05/05/2016 12:57:Deidre Thompson RN)
[2016-05-31 07:51] LABS: HEMATOCRIT 25.2 % (36.0-47.0); HGB HCT DIFFERENCE -1.8; MEAN CORPUSCULAR HEMOGLOBIN 28.1 pg (27.0-33.4); MEAN CORPUSCULAR VOLUME 91 fl (80-97); RED BLOOD COUNT 2.78 10^6/uL (3.72-5.28); WHITE BLOOD COUNT 13.3 10^3/uL (4.0-10.5)
[2016-05-31 08:04] LABS: HEMOGLOBIN 7.8 g/dL (12.0-15.5)
[2016-05-31] MEDS: SENNOSIDES/DOCUSATE 8.6-50 MG 1 EACH TABLET PO SCH (09:42)
[2016-05-31] MEDS: DOCUSATE SODIUM 100 MG CAPSULE PO SCH ×2 (09:42→17:33)
[2016-05-31] MEDS: FERROUS SULFATE 325 MG TABLET PO SCH ×2 (09:43→17:33)
[2016-05-31] MEDS: PRENATAL VITAMIN W-O CA NO5/FE FUMARATE/FA CAPSULE PO SCH (09:43)
--- NOTE | 2016-05-31 15:55 | PDOC PROGRESS REPORT ---
Subjective-OB Subjective: Post Delivery Day: 1 21 year old s/p vaginal delivery. Bottle feeding and voiding without difficulty. Denies any needs at this time Physical Exam (OB) Vital Signs: Temp Pulse Resp BP Pulse Ox 98.2 F 86 17 153/88 H 98 05/31/16 09:30 05/31/16 09:30 05/31/16 09:30 05/31/16 09:30 05/31/16 09:30 Intake & Output 05/30/16 05/31/16 06/01/16 06:59 06:59 06:59 Weight 69 kg - General General Appearance: Appears well In distress: None - PIH/Pre-Eclampsia DTR's: 2 + Clonus: Negative Headache: Absent Epigastric Pain: No Visual Changes: No PIH/Pre-Eclampsia Note: repeat BP this afternoon 131/88. Denies all symptoms of PIH. Declines hx of HTN. - Episiotomy/Laceration Site Condition: N/A Episiotomy/Laceration Note: superficial lacerations not repaired - Lochia Lochia Amount: Scant < 10 ml Lochia Color: Rubra/Red - Abdomen Description: Soft Hernia Present: No Fundal Description: Firm, Midline Fundal Height: u/u - u/2 - Respiratory Respiratory Status: No respiratory distress - Extremities Upper extremity: Normal inspection Lower extremities: Normal inspection - Neurological Orientation: AAOx4 - Psychological Associated symptoms: Normal affect, Normal mood Objective-Diagnostic Laboratory: 05/31/16 07:10 05/30/16 11:05 05/30/16 05/30/16 05/30/16 10:32 11:05 11:05 WBC 21.1 H RBC 3.70 L Hgb 10.6 L Hct 32.9 L MCV 89 MCH 28.7 MCHC 32.2 RDW 13.0 Plt Count 183 Seg Neutrophils % Not Reportable Lymphocytes % Not Reportable Monocytes % Not Reportable Eosinophils % Not Reportable Basophils % Not Reportable Absolute Neutrophils Not Reportable Absolute Lymphocytes Not Reportable Absolute Monocytes Not Reportable Absolute Eosinophils Not Reportable Absolute Basophils Not Reportable Sodium Potassium Chloride Carbon Dioxide Anion Gap BUN Creatinine Est GFR ( Amer) Est GFR (Non-Af Amer) Glucose Uric Acid Calcium Total Bilirubin AST ALT Alkaline Phosphatase Total Protein Albumin Urine Color YELLOW Urine Appearance SLIGHTLY-CLOUDY Urine pH 8.0 Ur Specific [place] 1.010 Urine Protein 30 H Urine Glucose (UA) NEGATIVE Urine Ketones TRACE H Urine Blood LARGE H Urine Nitrite NEGATIVE Ur Leukocyte Esterase SMALL H Blood Type B POSITIVE Antibody Screen NEGATIVE 05/30/16 05/31/16 11:05 07:10 WBC 13.3 H RBC 2.78 L Hgb 7.8 L D Hct 25.2 L MCV 91 MCH 28.1 MCHC 31.0 L RDW 13.0 Plt Count 141 L Seg Neutrophils % Lymphocytes % Monocytes % Eosinophils % Basophils % Absolute Neutrophils Absolute Lymphocytes Absolute Monocytes Absolute Eosinophils Absolute Basophils Sodium 139.3 Potassium 3.7 Chloride 105 Carbon Dioxide 20 L Anion Gap 14 BUN 5 L Creatinine 0.48 L Est GFR ( Amer) > 60 Est GFR (Non-Af Amer) > 60 Glucose 92 Uric Acid 5.6 Calcium 10.0 Total Bilirubin 0.5 AST 32 ALT 26 Alkaline Phosphatase 269 H Total Protein 6.7 Albumin 3.8 Urine Color Urine Appearance Urine pH Ur Specific [place] Urine Protein Urine Glucose (UA) Urine Ketones Urine Blood Urine Nitrite Ur Leukocyte Esterase Blood Type Antibody Screen Assessment and Plan(PN) - Assessment and Plan (1) Vaginal delivery Is this a current diagnosis for this admission?: YesPlan: continue stay. - Time Spent with Patient Time with patient: 15-25 minutes Smoking Education Provided: Over 3 minutes Medications reviewed and adjusted accordingly: Yes - Disposition Anticipated Discharge: Home Within: within 24 hours
[2016-06-01] MEDS: IBUPROFEN 800 MG TABLET PO SCH ×2 (06:20→13:26)
[2016-06-01 08:07] VITALS: BP 135/81
[2016-06-01] MEDS: FERROUS SULFATE 325 MG TABLET PO SCH (10:08)
[2016-06-01] MEDS: DOCUSATE SODIUM 100 MG CAPSULE PO SCH (10:08)
[2016-06-01] MEDS: PRENATAL VITAMIN W-O CA NO5/FE FUMARATE/FA CAPSULE PO SCH (10:08)
[2016-06-01] MEDS: SENNOSIDES/DOCUSATE 8.6-50 MG 1 EACH TABLET PO SCH (10:08)
--- NOTE | 2016-06-01 11:17 | PDOC DISCHARGE SUMMARY ---
Final Diagnosis Discharge Date: 06/01/16 Discharge Data - Discharge Medication Home Medications: Pnv with Ca,No.72/Iron/FA [Pnv Plus Multivit Tab] 1 each PO DAILY 05/30 Reason(s) for Admission: Onset of Labor Procedures: NST Intrapartum Procedure(s): Spontaneous Vaginal Delivery Intrapartum Procedure Note: precipitous labor Complication(s): Laceration-Labial Laceration-Degree: 1st - Diagnosis Test Laboratory: Temp Pulse Resp BP Pulse Ox 98.2 F 75 17 135/81 H 100 06/01/16 08:05 06/01/16 08:05 06/01/16 08:05 06/01/16 08:05 06/01/16 08:05 05/30/16 05/30/16 05/31/16 10:32 11:05 07:10 RBC 3.70 L 2.78 L Hgb 10.6 L 7.8 L D Hct 32.9 L 25.2 L Urine Opiates Screen NEGATIVE - Discharge information/Instructions Discharge Activity: Activity As Tolerated, Balance Activity w/Rest, No Lifting Over 10 Pounds, No Lifting/Push/Pulling, Pelvic Rest, Slowly Increase Activity, No tub bath, Walk Frequently Discharge Diet: Regular Disposition: HOME, SELF-CARE Follow up with: [facility] in: 4, Weeks
== END 2016-06-01 17:24 | disposition home or self-care (01) | DRG 775 ==
LOC: LC 10:23 → LR 11:01 → EEVIPCON 11:01 → 2S 13:37
PROVIDERS: ADMIT Obstetrics & Gynecology; ATTEND Obstetrics & Gynecology
PROC: 10E0XZZ Delivery of Products of Conception, External Approach (ICD-10-PCS; principal; 2016-05-30)
PROC: 4A1HXCZ Monitoring of Products of Conception, Cardiac Rate, External Approach (ICD-10-PCS; 2016-05-30)
DX: O99.824 Streptococcus B carrier state complicating childbirth (principal); O62.3 Precipitate labor; O99.324 Drug use complicating childbirth; O69.89X0 Labor and delivery complicated by other cord complications, not applicable or unspecified; O70.0 First degree perineal laceration during delivery; F12.90 Cannabis use, unspecified, uncomplicated; Z3A.37 37 weeks gestation of pregnancy; Z37.0 Single live birth
CPT/HCPCS: 36415; 80053; 80307; 81005; 83615; 84550; 85025; 85027; 86592; 86850; 86900; 86901; 88305; J2540; J2590; J3490

== ENCOUNTER 2016-09-02 08:11 | Emergency (ER) | payer MEDICAID ==
[2016-09-02] MEDS ORDERED: BUPIVACAINE HCL 0.5 % INJ/PF 30 ML SDV INJ ONE (08:27)
[2016-09-02] MEDS ORDERED: PENICILLIN V POTASSIUM 500 MG TABLET PO ONE (08:28)
--- NOTE | 2016-09-02 08:30 | ER Document Report ---
HPI - HPI Patient complains to provider of: toothache Pain Level: 5 Context: Patient is a 21 year old female who presents with tooth pain since last night. Pain is located right upper jaw from a fractured tooth. She denies any fever, chills, dysphagia, dyspnea, foul odor/drainage. She states that she has had issues with this tooth for on/off for one year. Has not followed up with dentist PMH- denies PSH- denies NKDA - REPRODUCTIVE Reproductive: REPORTS: : - DERM Skin Color: Normal Past Medical History - Social History Smoking Status: Current Every Day Smoker Family History: Reviewed & Not Pertinent Renal/ Medical History: Denies: Hx Peritoneal Dialysis - Immunizations Hx Diphtheria, Pertussis, Tetanus Vaccination: Yes Vertical Provider Document - CONSTITUTIONAL Agree With Documented VS: Yes Exam Limitations: No Limitations General Appearance: WD/WN, No Apparent Distress - INFECTION CONTROL TRAVEL OUTSIDE OF THE [place] IN LAST 30 DAYS: No - HEENT HEENT: negative: Pharyngeal Exudate, Pharyngeal Tenderness, Pharyngeal Erythema Mouth Diagram: 1 - evidence of fracture, no evidence of abscess Notes: No evidence of retropharyngeal or peritonsillar abscess. Airway patent. - NECK Neck: Normal Inspection. negative: Lymphadenopathy-Left, Lymphadenopathy-Right Notes: No evidence of William angina - RESPIRATORY Respiratory: Breath Sounds Normal, No Respiratory Distress - CARDIOVASCULAR Cardiovascular: Regular Rate, Regular Rhythm, No Murmur Course - Re-evaluation Re-evalutation: 09/02/16 08:39 Patient is a 21-year-old female who is hemodynamically stable, no acute distress and afebrile. No evidence of abscess, peritonsillar abscess, allergic. She'll abscess requiring drainage. Patient received 5 mL of Sensorcaine dental block with complete resolution of her symptoms. Discharge patient home on penicillin and can follow up with dentist. Discharge - Discharge Clinical Impression: Toothache Condition: Good Disposition: HOME, SELF-CARE Instructions: [facility], Penicillin V K ([facility]), Toothache ([facility]), Oral Narcotic Medication ([facility]) Additional Instructions: [facility] [address] [place], [place] Rik mornings, by appointment [facility] [address] [place] [address] Formerly [facility] [place] [address] [facility] [address] [facility] [address] [email or web address] [address] [place] [address] Sunday- 8:00am to 5:00 pm Will see patients from other [facility]. Charges based on income and family size and accepts Medicare, Medicaid, and Insurances Will pull molars [facility] Student [facility] [id number] Hours of Operation 8:00 am - 4:30 pm weekdays The following dental offices accept Medicaid: [facility] Dr. Kurtz Dr. Napier Dr. Yi Dr. Hand Bear [place], and [place] oral surgery Dr. Marsh ([place]) Dr. Luciano ([place]) [facility] Drs. Thurman and [place] ([place]) Dr. Baez ([place]) [facility] Dr. Calvert ([place]) Drs. Gutiérrez and ([place]) Medicaid Care Line Prescriptions: Oxycodone HCl/Acetaminophen [Percocet 5-325 mg Tablet] 1 - 2 tab PO Q4HP PRN #5 tablet PRN Reason: Penicillin V Potassium [Penicillin Vk 500 mg Tablet] 500 mg PO BID #7 tablet Forms: Elevated Blood Pressure
[2016-09-02 08:34] VITALS: BP 135/88
== END 2016-09-02 08:50 | disposition home or self-care (01) ==
LOC: ER 08:11
DX: K08.89 Other specified disorders of teeth and supporting structures (principal); R68.84 Jaw pain; F17.200 Nicotine dependence, unspecified, uncomplicated
CPT/HCPCS: 99282; J3490